=== PATIENT | male | born 1945 | race Caucasian/White ===

== ENCOUNTER 2021-03-12 15:24 | Emergency (ER) | payer MEDICARE ==
[2021-03-12] MEDS ORDERED: Bacitracin Oint 1 GM U/D Packet TOP ONE (15:38)
--- NOTE | 2021-03-12 15:57 | EDM.PDOC ---
ED HPI GENERAL MEDICAL PROBLEM - General Chief Complaint: General Stated Complaint: FISH HOOK IN LEFT HAND Time Seen by Provider: 03/12/21 15:50 Source of Information: Reports: Patient, Family History Limitations: Reports: No Limitations - History of Present Illness INITIAL COMMENTS - FREE TEXT/NARRATIVE: 75-year-old male with a fishhook embedded into the thenar area of the left thumb. No other injury. Onset: Today Duration: Hour(s): (2 hours) Location: Reports: Upper Extremity, Left Associated Symptoms: Reports: No Other Symptoms - Related Data Allergies Allergy/AdvReac Type Severity Reaction Status Date / Time acetaminophen [From Percocet] Allergy Hives Verified 03/12/21 15:44 codeine Allergy Other Verified 03/12/21 15:44 nut - unspecified Allergy Anaphylactic Verified 03/12/21 15:44 Shock oxycodone [From Percocet] Allergy Hives Verified 03/12/21 15:44 povidone-iodine Allergy Rash Verified 03/12/21 15:44 [From Betadine] soap [From Betadine] Allergy Rash Verified 03/12/21 15:44 Past Medical History - Past Health History Medical/Surgical History: Denies Medical/Surgical History Social & Family History - Tobacco Use Tobacco Use Status *Q: Never Tobacco User - Caffeine Use Caffeine Use: Reports: Coffee - Recreational Drug Use Recreational Drug Use: No ED ROS GENERAL - Review of Systems Review Of Systems: See Below Constitutional: Denies: Fever, Chills Respiratory: Reports: No Symptoms GI/Abdominal: Reports: No Symptoms Musculoskeletal: Reports: Other (Left hand has 1 tiffanie of a treble hook embedded into the lateral thenar area of the hand.) Neurological: Reports: No Symptoms. Denies: Paresthesia Psychiatric: Reports: No Symptoms ED EXAM, GENERAL - Physical Exam Exam: See Below Exam Limited By: No Limitations General Appearance: Alert, No Apparent Distress Head: Atraumatic Respiratory/Chest: No Respiratory Distress Extremities: Other (Left hand reveals 1 tiffanie of a treble hook embedded into the soft tissue of the thenar area laterally.) Neurological: Alert, Oriented Psychiatric: Normal Affect, Normal Mood Skin Exam: Warm, Dry Course - Vital Signs Last Recorded V/S: Last Vital Signs Temp 97.6 F 03/12/21 15:40 Pulse 64 03/12/21 15:40 Resp 18 03/12/21 15:40 BP 152/79 H 03/12/21 15:40 Pulse Ox 100 03/12/21 15:40 - Orders/Labs/Meds Meds: Medications Discontinued Medications Generic Name Dose Route Start Last Admin Trade Name Garret PRN Reason Stop Dose Admin Bacitracin 1 dose 03/12/21 15:38 03/12/21 15:48 Bacitracin Oint 1 Gm U/D Packet TOP 03/12/21 15:39 1 dose ONETIME ONE Administration Lidocaine HCl 5 ml 03/12/21 15:38 03/12/21 15:48 Lidocaine 1% 5 Ml Sdv INJECT 03/12/21 15:39 5 ml ONETIME ONE Administration - Re-Assessments/Exams Free Text/Narrative Re-Assessment/Exam: 03/12/21 16:16 The area was sterilized with alcohol, a small amount of 1% lidocaine injected, and the hook removed with countertraction with a needle rashid., Small amount of bacitracin applied and a Band-Aid. Patient will keep the wound clean while healing. Departure - Departure Time of Disposition: 15:57 Disposition: Home, Self-Care 01 Clinical Impression: Foreign body of hand, left, superficial Qualifiers: Encounter type: initial encounter Qualified Code(s): S60.552A - Superficial foreign body of left hand, initial encounter - Discharge Information Instructions: Puncture Wound, [id number] Referrals: PCP,None [Primary Care Provider] - Forms: ED Department Discharge Care Plan Goals: Keep wound covered and clean while healing. Recheck if concerns of infection or not healing satisfactorily. Keep fishing. Sepsis Event Note (ED) - Evaluation Sepsis Screening Result: No Definite Risk - Focused Exam Vital Signs: Vital Signs Temp Pulse Resp BP Pulse Ox 03/12/21 15:40 97.6 F 64 18 152/79 H 100
== END 2021-03-12 16:01 | disposition home or self-care (01) ==
LOC: JP.ED 15:24
DX: S60.552A Superficial foreign body of left hand, initial encounter (principal); Z88.6 Allergy status to analgesic agent; Z88.5 Allergy status to narcotic agent; Z91.018 Allergy to other foods; Z91.048 Other nonmedicinal substance allergy status; W45.8XXA Other foreign body or object entering through skin, initial encounter
CPT/HCPCS: 99283